=== PATIENT | female | born 1945 | race Two or more races ===

== ENCOUNTER → 2025-02-06 | Outpatient (CLI) | payer MEDICARE, MEDICAID, SELFPAY ==
--- NOTE | 2025-02-06 10:24 | EKG_ITS ---
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
== END | disposition home or self-care (01) ==
PROVIDERS: Referring Provider Nurse Practitioner; Visit Provider Nurse Practitioner
DX: C50.411 Malignant neoplasm of upper-outer quadrant of right female breast (principal)
CPT/HCPCS: 93005

== ENCOUNTER 2025-09-03 11:17 | Outpatient (RCR) | payer MEDICARE, MEDICAID, SELFPAY | END 2025-09-15 23:59 | disposition home or self-care (01) | LOC: SCTC 11:17 | PROVIDERS: PCP Nurse Practitioner; Referring Provider Nurse Practitioner; Visit Provider Radiology Therapeutic Radiology | DX: Z51.0 Encounter for antineoplastic radiation therapy (principal); C79.51 Secondary malignant neoplasm of bone; C50.611 Malignant neoplasm of axillary tail of right female breast; Z17.0 Estrogen receptor positive status [ER+]; Z17.32 Human epidermal growth factor receptor 2 negative status | CPT/HCPCS: 77373 ==

== ENCOUNTER 2025-10-01 10:10 | Outpatient (RCR) | payer MEDICARE, MEDICAID, SELFPAY ==
--- NOTE | 2025-10-01 11:41 | CTCTSUMM_ITS ---
[facility] [address] [place], [place] [address] Treatment Summary Date: 10/01/2025 MR#: [id number] Name: MINH HONG : 1945 Dx: C79.51 Referring Physician: Fritz Montgomery MD (A) Diagnosis: [ICD10] C79.51 Secondary malignant neoplasm of bone (B) Aim of Treatment: ??Palliative (C) Concomitant Chemotherapy: No (D) Radiation Dates: 08/20, 08/22. 08/28. , , 09/03 5 fractions Treatment Prescription C4 SBRT_4 Arcs 6 MV PHOT 2,500 cGy 5 500 cGy Approved (E) All haines were treated using customized MLC Blocks (F) Finding at Discharge: Seen for first follow-up on 10/01/2025. Patient was doing well with no major discomforts. Moving arms and legs well using walker. (G) Discharge Instructions and F/U Appt was given: The patient was also advised to continue follow-up with Dr. Montgomery and primary care physician: (H) [facility] Electronically signed by: Vinnie Faustin MD, YIN 10/01/2025 11:37 AM
== END 2025-10-16 23:59 | disposition home or self-care (01) ==
LOC: SCTC 10:10
PROVIDERS: PCP Physician Assistant; Referring Provider Nurse Practitioner; Visit Provider Radiology Therapeutic Radiology
DX: C79.51 Secondary malignant neoplasm of bone (principal); Z92.3 Personal history of irradiation
CPT/HCPCS: 99213; G0463